=== PATIENT | female | born 1990 ===

== ENCOUNTER 2021-12-02 20:44 | Emergency (ER) | payer MEDICAID ==
[~2021-12-02] VITALS: Ht 160 cm; Wt 73.3 kg
[2021-12-02 21:00] VITALS: BP 110/70
[2021-12-02 21:21] LABS: URINE HCG NEGATIVE (NEG)
[2021-12-02 21:27] LABS: COLOR,URINE YELLOW (Yellow); GLUCOSE, URINE NEGATIVE (Neg); KETONES,URINE NEGATIVE (Neg); LEUKOCYTE ESTERASE ,URINE SMALL (Neg); NITRITES, URINE NEGATIVE (Neg); OCCULT BLOOD,URINE NEGATIVE (Neg); PROTEIN,URINE NEGATIVE (Neg)
[2021-12-02 21:39] LABS: UA COLLECTION TYPE CLN CATCH MIDSTREAM
[2021-12-02 21:40] LABS: BACTERIA,URINE FEW /HPF (Neg); CLARITY,URINE SLIGHTLY CLOUDY (Clear); RBC,URINE 0-2 /HPF (0-2); SQUAMOUS EPITHELIAL CELL,UR FEW /LPF (FEW); WBC,URINE 30-50 /HPF (0-4)
== END 2021-12-02 22:56 | disposition left against medical advice (07) ==
LOC: ER 20:45
DX: R10.31 Right lower quadrant pain (principal); Z53.21 Procedure and treatment not carried out due to patient leaving prior to being seen by health care provider
CPT/HCPCS: 81001; 81025; 87077; 87088; 87186